=== PATIENT | female | born 1965 | race Caucasian/White ===

== ENCOUNTER → 2016-06-28 | Outpatient (CLI) | payer OTHER ==
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
== END ==
LOC: FIMAGING 11:36 → EDSTATUS 11:39
PROVIDERS: ATTEND Emergency Medicine
DX: M50.322 Other cervical disc degeneration at C5-C6 level (principal); M46.92 Unspecified inflammatory spondylopathy, cervical region

== ENCOUNTER → 2016-07-29 | Outpatient (CLI) | payer OTHER ==
--- NOTE | 2016-07-29 10:55 | DX ---
Sacrum and Coccyx History: Fell 2 days ago persistent tailbone pain Comparison: None Findings: There is a nondisplaced mid coccygeal fracture. The sacrum and SI joints are intact. Degene rative change of the right L5-S1 facet joint. Impression: Coccygeal fracture. Results called to Dr. Delaney as requested.
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
== END ==
LOC: FIMAGING 10:16
PROVIDERS: ATTEND Emergency Medicine
DX: S32.2XXA Fracture of coccyx, initial encounter for closed fracture (principal); M25.531 Pain in right wrist; W19.XXXA Unspecified fall, initial encounter

== ENCOUNTER → 2016-08-09 | Outpatient (CLI) | payer OTHER | LOC: FIMAGING 17:12 | PROVIDERS: ATTEND Emergency Medicine | DX: M25.531 Pain in right wrist (principal) ==

== ENCOUNTER → 2016-09-01 | Outpatient (CLI) | payer OTHER | LOC: CIMAGING 08:38 | DX: Z12.31 Encounter for screening mammogram for malignant neoplasm of breast (principal) | CPT/HCPCS: G0202 ==

== ENCOUNTER → 2016-12-28 | Outpatient (CLI) | payer OTHER | LOC: BRMIMAGING 13:37 | PROVIDERS: ATTEND Specialist | DX: M25.532 Pain in left wrist (principal) | CPT/HCPCS: 73110-PO ==

== ENCOUNTER → 2017-02-14 | Outpatient (CLI) | payer OTHER | LOC: BRMIMAGING 14:42 | PROVIDERS: ATTEND Internal Medicine | DX: M17.0 Bilateral primary osteoarthritis of knee (principal); S83.002A Unspecified subluxation of left patella, initial encounter; S83.001A Unspecified subluxation of right patella, initial encounter | CPT/HCPCS: 73564-PO ==